=== PATIENT | male | born 1945 | race Caucasian/White ===

== ENCOUNTER → 2016-03-27 | Outpatient (CLI) | payer MEDICARE ==
[~2016-03-27] MED LIST: AZIT-21 PO; B6; CYAN100021 PO; DEXL60CA5 PO; KRIL1CAP10 PO; LACT1CAP62 PO; LEVO75TA57 PO; MAGNESIUM; MECL12.579 PO; NF-ESOM40C; OMEP-10 PO; OSTEO-BIFLEX PO; SYNTHROID; THYR15TA PO; TRM50T PO
--- NOTE | 2016-03-27 13:09 | Diagnostic Imaging Report ---
PROCEDURE: CT abdomen and pelvis without contrast. TECHNIQUE: Multiple contiguous axial images were obtained through the abdomen and pelvis without the use of intravenous contrast. INDICATION: Left lower quadrant pain. FINDINGS: The lung bases appear clear. The heart size is normal. The liver, the gallbladder, the spleen, the pancreas and the adrenals appear unremarkable for an unenhanced exam. The abdominal aorta is normal in caliber. No para-aortic significantly enlarged lymph nodes are seen. The kidneys demonstrate no hydronephrosis. No urinary tract stones seen. The urinary bladder appears unremarkable. There is diverticulosis. No diverticulitis. No significant free fluid or fluid collection in the abdomen or pelvis seen. The prostate is 5.3 cm in transverse dimension. The osseous structures demonstrate mild degenerative changes in the lumbar spine and moderate degenerative changes in the hip joints with significant hyperostosis along the lateral margin of the left acetabulum and subchondral cyst formation seen. This is potentially posttraumatic as well. IMPRESSION: Diverticulosis. No diverticulitis. Enlarged prostate. Dictated by: Dictated on workstation # [id number]
== END ==
LOC: RAD 11:36
PROVIDERS: ATTEND Family Medicine
DX: K57.90 Diverticulosis of intestine, part unspecified, without perforation or abscess without bleeding (principal); N40.0 Benign prostatic hyperplasia without lower urinary tract symptoms
CPT/HCPCS: 74176

== ENCOUNTER 2016-07-22 08:51 | Outpatient (CLI) | payer MEDICARE ==
[~2016-07-22] VITALS: Ht 170.2 cm; Wt 71.8 kg
[2016-07-22] MEDS ORDERED: THYR60TA2 PO (09:09)
[2016-07-22] MEDS ORDERED: GLUC1TAB20 PO (09:09)
[2016-07-22 09:13] VITALS: BP 123/66
[2016-07-22 09:33] LABS: BASOPHILS # (AUTO) 0.1 10^3/uL (0.0-0.1); BASOPHILS % (AUTO) 1 % (0-10); EOSINOPHILS # (AUTO) 0.3 10^3/uL (0.0-0.3); EOSINOPHILS % (AUTO) 4 % (0-10); LYMPHOCYTES # (AUTO) 2.3 X 10^3 (1.0-4.0); LYMPHOCYTES % (AUTO) 37 % (12-44); MEAN CORPUSCULAR HEMOGLOBIN 31 PG (25-34); MEAN CORPUSCULAR HGB CONC 34 G/DL (32-36); MEAN CORPUSCULAR VOLUME 91 FL (80-99); MEAN PLATELET VOLUME 9.6 FL (7.4-10.4); MONOCYTES # (AUTO) 0.6 X 10^3 (0.0-1.0); MONOCYTES % (AUTO) 10 % (0-12); NEUTROPHILS # (AUTO) 3.1 X 10^3 (1.8-7.8); NEUTROPHILS % (AUTO) 48 % (42-75); PLATELET COUNT 165 10^3/uL (130-400); RED BLOOD COUNT 4.79 10^6/uL (4.35-5.85); RED CELL DISTRIBUTION WIDTH 13.3 % (10.0-14.5); WHITE BLOOD COUNT 6.4 10^3/uL (4.3-11.0)
== END 2016-07-22 10:18 | disposition home or self-care (01) ==
LOC: PREOP 08:51
PROVIDERS: ATTEND Surgery Pediatric Surgery
DX: Z01.812 Encounter for preprocedural laboratory examination (principal); Z11.2 Encounter for screening for other bacterial diseases; K40.90 Unilateral inguinal hernia, without obstruction or gangrene, not specified as recurrent
CPT/HCPCS: 36415; 85025; 87081

== ENCOUNTER 2016-07-24 07:53 | Day surgery (SDC) | payer MEDICARE ==
[~2016-07-24] VITALS: Ht 170.2 cm; Wt 71.8 kg
[~2016-07-24 07:53] MED LIST changes: +GLUC1TAB20 PO; +THYR60TA2 PO
[2016-07-24] MEDS ORDERED: NS (IVPB) 50 ML ONE (07:56)
[2016-07-24] MEDS ORDERED: ceFAZolin 1,000 MG (ANCEF) VIAL ONE (07:56)
[2016-07-24] MEDS: LACTATED RINGERS 1,000 ML IV PRN ×2 (08:00→10:25)
[2016-07-24 08:05] VITALS: BP 138/86
--- NOTE | 2016-07-24 08:05 | Progress Note-Pre Operative ---
Pre-Operative Progress Note H&P Reviewed The H&P was reviewed, patient examined and no changes noted. Date H&P Reviewed: July 24, 2016 Time H&P Reviewed: 08:00 Pre-Operative Diagnosis: Symptomatic left inguinal hernia EILEEN MCGHEE APRN July 24, 2016 8:05 am
[2016-07-24] MEDS ORDERED: morphine INJ 10 MG/ML 1ML (SYR OR VIAL) IVP PRN (08:15)
[2016-07-24] MEDS ORDERED: HYDROcodone/APAP 5 MG/325 MG (LORTAB) TAB PO ONE (08:15)
[2016-07-24] MEDS ORDERED: ONDANSETRON 4 MG/2 ML (SDV) Z0FRAN IVP PRN ×2 (08:15→12:15)
[2016-07-24] MEDS ORDERED: ceFAZolin 1 GM/NS 50 ML IVPB IV ONE ×2 (08:15)
[2016-07-24] MEDS ORDERED: CATHETER FLUSH 10 ML SYR IV PRN (08:15)
[2016-07-24] MEDS ORDERED: ACETAMINOPHEN 325 MG TABLET/CAPLET (TYLENOL) PO PRN (08:15)
[2016-07-24] MEDS ORDERED: ROCURONIUM 50 MG/5 ML (ZEMURON) VIAL IV ONE (08:32)
[2016-07-24] MEDS ORDERED: proPOfol 200 MG/20 ML (DIPRIVAN) VIAL IV ONE (08:32)
[2016-07-24] MEDS ORDERED: ONDANSETRON 4 MG/2 ML (SDV) Z0FRAN ONE (08:32)
[2016-07-24] MEDS ORDERED: LIDOCAINE PF 2% 10 ML (XYLOCAINE) AMP ONE (08:32)
[2016-07-24] MEDS ORDERED: MIDAZOLAM 2 MG/2 ML (VERSED) VIAL ONE (08:32)
[2016-07-24] MEDS ORDERED: fentaNYL INJECTION 100 MCG/2 ML AMP ONE ×2 (08:33→11:35)
[2016-07-24] MEDS ORDERED: BUP/EPI 0.5% 1:200,000 (SENSORCAINE) 30 ML VIAL ONE (08:51)
[2016-07-24] MEDS ORDERED: LACTATED RINGERS 1,000 ML IV ONE (10:33)
[2016-07-24] MEDS ORDERED: SEVOFLURANE (ULTANE) 15 ML INHAL SOLN ONE (10:45)
[2016-07-24] MEDS ORDERED: NEOSTIGMINE (BLOXIVERZ ) 1 MG/1ML 10 ML VIAL ONE (11:38)
[2016-07-24] MEDS ORDERED: GLYCOPYRROLATE 0.2 MG/ML (ROBINUL) 2 ML VIAL ONE (11:38)
[2016-07-24] MEDS ORDERED: morphine INJ 10 MG/ML 1ML (SYR OR VIAL) ONE (11:40)
[2016-07-24] MEDS ORDERED: HYDR-3730 PO (11:49)
--- NOTE | 2016-07-24 11:49 | Progress Note-Post Operative ---
Post-Operative Progess Note Surgeon (s)/Summons Server (s) Surgeon KARLIE PAREDES MD Summons Server: les edward KNOCKOUT WORKER Pre-Operative Diagnosis Symptomatic left inguinal hernia Post-Operative Diagnosis symptomatic left direct inguinal hernia. Procedure & Operative Findings Date of Procedure 07/24/16 Procedure Performed/Findings laparoscopic left inguinal hernia repair with mesh. Anesthesia Type GET Estimated Blood Loss Estimated blood loss (mL): minimal Specimens/Packing Specimens Removed none KARLIE PAREDES MD July 24, 2016 11:48 am
--- NOTE | 2016-07-24 11:50 | Discharge Inst-Surgical ---
D/C Lap Instructions-LENA New, Converted, or Re-Newed RX: RX on Chart Follow Up Appt in 2 weeks Activity as tolerated No driving for 24 hours No driving while on pain medications Incentive Spirometry use every 2 hours while awake Regular Diet Symptoms to Report: Fever over 101 degree F, Nausea/Vomiting Infection Signs and Symptoms to report: Increased redness, Foul odor of wound, Increased drainage Bathing instructions: May shower Operative Area Clean/Dry; Keep incision clean/dry If any problems/questions: Contact your physician or go to Emergency Room KARLIE PAREDES MD July 24, 2016 11:50 am
[2016-07-24] MEDS ORDERED: HYDROmorphone (DILAUDID) 2 MG/ML VIAL IVP PRN (12:15)
[2016-07-24] MEDS ORDERED: MEPERIDINE (DEMEROL) INJ 50 MG/ML IVP PRN (12:15)
[2016-07-24] MEDS: morphine INJ 10 MG/ML 1ML (SYR OR VIAL) IVP PRN ×2 (12:23→12:27)
[2016-07-24 13:00] VITALS: BP 129/78
[2016-07-24] MEDS ORDERED: HYDROcodone/APAP 7.5 MG/325 MG (LORTAB, LORCET PLUS) TABLET PO ONE ×2 (13:26→13:45)
[2016-07-24 13:30] VITALS: BP 124/76
--- NOTE | 2016-07-24 22:55 | OPERATIVE REPORT ---
DATE OF SERVICE: 07/24/2016 ATTENDING PRIMARY CARE PHYSICIAN: Dr. Weir. PREOPERATIVE DIAGNOSIS: Symptomatic left inguinal hernia and non-specific left lower quadrant abdominal pain. POSTOPERATIVE DIAGNOSIS: Symptomatic left direct inguinal hernia. PROCEDURE: Diagnostic laparoscopy and laparoscopic left inguinal hernia repair with mesh. SURGEON: Dr. Robledo. ANESTHESIA: General endotracheal. LIFE SKILLS TRAINER: Jared Tapia APRN ESTIMATED BLOOD LOSS: Minimal. FINDINGS: Direct left inguinal hernia. No right inguinal hernia component. DISPOSITION: The patient tolerated the procedure well. INDICATION: The patient is a 71-year-old male who we have seen before in the past for gastroesophageal reflux disease and Fernández's esophagus. He did undergo a hiatal hernia repair and a Hill gastropexy and we had done followup EGDs on him, which were negative for Fernández's esophagus. He developed pain in the left inguinal region, which he noticed approximately two months ago, which had grown larger in size and become painful. He reports that he does have arthritis well as irritable bowel syndrome and has had some pain in the same region before as well. Upon examination, he was found to have a left bulge, which was reducible; however, tender to palpation, consistent with an inguinal hernia. PROCEDURE IN DETAIL: The patient was brought to the operating room, laid supine on the table. After adequate IV pain and sedative medications and general endotracheal intubation, the abdomen was prepped and draped in standard surgical fashion. Then 0.5% Marcaine with epinephrine was then used to anesthetize the overlying skin in the infraumbilical rim and a small transverse skin incision made using a 15 blade. A sharp towel clamp was applied. Then, the abdominal wall was retracted anteriorly. A Veress needle inserted with a low opening pressure of 0 mmHg. The abdomen was then insufflated to 15 mmHg pressure. The Veress needle removed and a 5 mm Xcel trocar placed followed by a 10 mm Xcel trocar placed followed by a 10 mm 45-degree angle laparoscope visualizing the peritoneal cavity. A full quadrant abdominal x-ray exploration was performed. There were omental adhesions towards the anterior abdominal wall. There was also what appeared to be sigmoid colonic adhesions towards the peritoneal lining. There was a left direct inguinal hernia identified with nothing within the hernia sac. There was no right inguinal hernia component. Under direct visualization, we then proceeded to place bilateral 5 mm ports under direct visualization after the skin and peritoneum were anesthetized using 0.5% Marcaine with epinephrine and a transverse skin incision made using a 15 blade. The patient was then placed in Trendelenburg position. The peritoneal lining was then opened using Sonicision. We then proceeded with lateral dissection towards the conjoint tendon and inguinal ligament. We then proceeded medially until the Diogo's ligament was identified. We then proceeded with inferior dissection encompassing the entire hernia sac. The cord and its contents were identified and spread throughout the process. Good hemostasis was also observed. A Bard 3D Max polypropylene mesh was then placed through the 10-mm port. The mesh was then tacked to Diogo's ligament medially using a SorbaFix and laterally to the conjoined tendon and inguinal ligament. The few demetrio tacks were then placed to hold the peritoneal lining over the mesh with visualization of good hemostasis. The 10-mm port site fascia and peritoneum were then closed under direct visualization using a Oscar-Donte device and a 0 Vicryl suture. The abdomen was desufflated and remaining ports were removed. All skin incisions were closed using 4-0 Monocryl subcuticular sutures. The wounds were then cleaned and covered with Dermabond. The patient tolerated the procedure well. We will start IV and oral pain medication as well as a clearly liquid diet. Once he is tolerating clears and has good pain control with oral pain medications and ambulating well, we will discharge him home. Job ID: [id number] DocumentID: [id number] Dictated Date: 07/24/2016 11:46:44 Nutritionist Date: 07/24/2016 22:04:33 Dictated By: KARLIE ROBLEDO MD MTDD
== END 2016-07-24 13:54 | disposition home or self-care (01) ==
LOC: SDC 07:53
PROVIDERS: ATTEND Surgery Pediatric Surgery
DX: K40.90 Unilateral inguinal hernia, without obstruction or gangrene, not specified as recurrent (principal); I10 Essential (primary) hypertension; E03.9 Hypothyroidism, unspecified; K21.9 Gastro-esophageal reflux disease without esophagitis; Z87.891 Personal history of nicotine dependence; Z79.899 Other long term (current) drug therapy
CPT/HCPCS: 94664

== ENCOUNTER → 2017-01-20 | Outpatient (CLI) | payer MEDICARE ==
[~2017-01-20] MED LIST changes: +HYDR-3730 PO
--- NOTE | 2017-01-20 17:59 | Diagnostic Imaging Report ---
EXAMINATION: PA and lateral views of the chest. COMPARISON: 10/02/2009. INDICATION: Exposure to asbestos. FINDINGS: There is mild increased opacity projecting over the right lung base which is favored to be related to asymmetric soft tissue superimposition with no definite focal infiltrate seen on the lateral view. The heart size is normal. No effusion or pneumothorax The mediastinum and tatiana appear unremarkable. Ossification of the anterior longitudinal ligament is seen. IMPRESSION: No acute process. Dictated by: Dictated on workstation # [id number]
== END ==
LOC: RAD 11:41
PROVIDERS: ATTEND Family Medicine
DX: M94.0 Chondrocostal junction syndrome [Tietze] (principal); Z77.090 Contact with and (suspected) exposure to asbestos
CPT/HCPCS: 71020

== ENCOUNTER → 2018-05-31 | Outpatient (CLI) | payer MEDICARE | LOC: CARD 08:40 | PROVIDERS: ATTEND Physician Assistant | DX: R07.89 Other chest pain (principal); I11.0 Hypertensive heart disease with heart failure; I50.30 Unspecified diastolic (congestive) heart failure; E78.2 Mixed hyperlipidemia; I08.0 Rheumatic disorders of both mitral and aortic valves | CPT/HCPCS: 93306 ==

== ENCOUNTER → 2021-10-24 | Outpatient (CLI) | payer MEDICARE ==
[~2021-10-24] MED LIST changes: -GLUC1TAB20 PO; +GLUC1TAB21 PO
--- NOTE | 2021-10-24 10:18 | Diagnostic Imaging Report ---
PROCEDURE: CT sinuses without contrast TECHNIQUE: Multiple contiguous axial images were obtained through the sinuses without the use of intravenous contrast. Coronal and sagittal reformations were then performed. Auto Exposure Controls were utilized during the CT exam to meet ALARA standards for radiation dose reduction. INDICATION: Headaches. Sinus pain. COMPARISON: Sinus CT without contrast 10/05/2014. FINDINGS: Mild mucosal thickening in the frontal and anterior ethmoid sinuses. No air-fluid levels. There is occlusion of the frontal recesses by mucosal thickening. The ostiomeatal units are patent. Moderate leftward bowing of the nasal septum. No large danna bullosa. Visualized mastoids are clear. Normal alignment of the temporomandibular joints. No fractures in baidf-td-onzy. IMPRESSION: Mild mucosal thickening in the frontal and anterior ethmoid sinuses occludes the frontal recesses. No air-fluid levels. Paranasal sinuses are otherwise clear. Dictated by: Dictated on workstation # [id number]
== END ==
LOC: RAD 10:15
PROVIDERS: ATTEND Family Medicine
DX: J32.9 Chronic sinusitis, unspecified (principal)
CPT/HCPCS: 70486

== ENCOUNTER 2021-12-24 22:06 | Emergency (ER) | payer MEDICARE ==
[~2021-12-24] VITALS: Ht 180.3 cm; Wt 68.0 kg
[2021-12-24 22:10] VITALS: BP 170/94
--- NOTE | 2021-12-24 22:11 | ED General ---
General Stated Complaint: HIGH BLOOD PRESSURE History of Present Illness Date Seen by Provider: Dec 24, 2021 Time Seen by Provider: 22:10 Initial Comments 77-year-old male with PMH of hypothyroidism is here with complaints of elevated blood pressure readings at home. Patient stated that his systolic blood pressure went up to 170 and that is unusual for him. Patient does not have any associated symptoms with elevated blood pressure. Denies chest pain, palpitations, dizziness, headache, neck pain, abdominal pain, shortness of breath. Patient is not on any hypertensive medications and was never diagnosed with hypertension. Allergies and Home Medications Allergies Coded Allergies: No Known Drug Allergies (Unverified , 07/22/16) Patient Home Medication List Home Medication List Reviewed: Yes Gluc Alvarado/Chondro Alvarado A/Vit C/Mn (Glucosamine Chondroitin Tab) 1 Each Tablet, 1 EACH PO DAILY, (Reported) Entered as Reported by: FIDENCIO EDWARDS on 07/22/16 0909 Hydrocodone/Acetaminophen (Lortab 7.5-325 mg Tablet) 1 Each Tablet, 1-2 EACH PO Q6H Prescribed by: KARLIE PAREDES on 07/24/16 1149 Krill Oil/Randall-3/Dha/Epa (Fish Oil With Krill Softgel) 1 Each Capsule.dr, 1 EACH PO DAILY, (Reported) Entered as Reported by: ITZ WEST on 03/17/13 1421 Thyroid,Pork ([place] Thyroid) 60 Mg Tablet, 30 MG PO DAILY, (Reported) Entered as Reported by: FIDENCIO EDWARDS on 07/22/16 0909 Review of Systems Review of Systems Constitutional: no symptoms reported EENTM: no symptoms reported Respiratory: no symptoms reported Cardiovascular: no symptoms reported, see HPI Gastrointestinal: no symptoms reported Genitourinary: no symptoms reported Musculoskeletal: no symptoms reported Skin: no symptoms reported Psychiatric/Neurological: No Symptoms Reported Hematologic/Lymphatic: No Symptoms Reported Immunological/Allergic: no symptoms reported Past Awnsuim-Dfocgw-Kkgyaj Hx Seasonal Allergies Seasonal Allergies: Yes Past Medical History Appendectomy Reproductive Disorders: No Sexually Transmitted Disease: No HIV/AIDS: No Kidney Stones Diverticulosis Arthritis Loss of Vision: Bilateral Hearing Impairment: Denies Adverse Reaction/Blood Tranf: No (N/A) Physical Exam Vital Signs Capillary Refill : Height, Weight, BMI Height: 5'7.00" Weight: 158lbs. 6.0oz. 71.208501cg; 24.8 BMI Method:Stated General Appearance: No Apparent Distress, WD/WN HEENT: PERRL/EOMI, Normal ENT Inspection Neck: Full Range of Motion, Normal Inspection, Non Tender, Supple Respiratory: Chest Non Tender, Lungs Clear, Normal Breath Sounds Cardiovascular: Regular Rate, Rhythm, No Edema Gastrointestinal: Normal Bowel Sounds, Non Tender, Soft Back: Normal Inspection Neurologic/Psychiatric: Alert, Oriented x3, No Motor/Sensory Deficits, Normal Mood/Affect, coat agent II-XII Norm as Tested Skin: Normal Color, Warm/Dry Lymphatic: No Adenopathy Progress/Results/Core Measures Suspected Sepsis SIRS Temperature: Pulse: Respiratory Rate: Blood Pressure / Mean: Results/Orders My Orders Orders - NELLI MCWILLIAMS MD Ekg Tracing (12/24/21 22:26) Vital Signs/I&O Capillary Refill : Progress Note : Progress Note 1. ELEVATED BLOOD PRESSURE: - BP readings in ER were 140/94 and 120/74 - Pt is asymptomatic at all times in ER and at home -Advised patient to keep a journal of blood pressure readings twice a day until his follow-up appointment this coming . Advised patient to return to ER if any symptoms develop along with the high blood pressure which include but are not limited to headache, dizziness, chest pain, palpitations, nausea and vomiting, etc. -Advised to keep appointment with PCP this week. -The patient was seen in the ED, and treated appropriately to presentation at a specific point in time. Patient is informed that there is a possibility that disease and illness can evolve and change in acuity rapidly or slowly after patient is discharged from the ER. Precautionary advice given to the patient for immediate return to ER if symptoms worsen or do not resolve, and to seek emergency care sooner rather than later. Pt also advised on the importance of PCP follow up and compliance with management and follow up plan with PCP and/or specialist, as this is part of the management plan. Pt verbally expressed understanding. Departure Impression Primary Impression: Elevated blood pressure reading Disposition: HOME, SELF-CARE Condition: Improved Departure-Patient Inst. Referrals: ZACK WINSTON MD (PCP/Family) Primary Care Physician Patient Instructions: High Blood Pressure in Adults, Heart Healthy Diet Add. Discharge Instructions: -Advised patient to keep a journal of blood pressure readings twice a day until his follow-up appointment this . Advised patient to return to ER if any symptoms develop along with the high blood pressure which include but are not limited to headache, dizziness, chest pain, palpitations, nausea and vomit ing, etc. -Advised to keep appointment with PCP this week. NELLI MCWILLIAMS MD Dec 24, 2021 22:11
== END 2021-12-24 23:30 | disposition home or self-care (01) ==
LOC: EDUNIT# 22:06 → ER 22:08
DX: R03.0 Elevated blood-pressure reading, without diagnosis of hypertension (principal)
CPT/HCPCS: 99281

== ENCOUNTER → 2022-03-26 | Outpatient (CLI) | payer MEDICARE ==
--- NOTE | 2022-03-26 14:03 | Diagnostic Imaging Report ---
PROCEDURE: US Renal Bilateral. TECHNIQUE: Multiple real-time grayscale images were obtained over the kidneys in various projections bilaterally. INDICATION: Flank pain. Right kidney measures 11.0 x 5.8 x 6.0 cm and the left kidney measures 12.4 x 4.7 x 5.0 cm. Cortical thickness and echogenicity is normal. No calculi are seen. There is no hydronephrosis. Prevoid bladder volume is 230 mL. Postvoid volume is 111 mL. Bilateral ureteral jets are visualized. Prostate does appear to be somewhat prominent measuring 5.0 x 3.8 x 4.4 cm. IMPRESSION: 1. No evidence of calculi or hydronephrosis. 2. Post void residual bladder volume. 3. Prostatomegaly. Dictated by: Dictated on workstation # [id number]
== END ==
LOC: RAD 11:26
PROVIDERS: ATTEND Nurse Practitioner Family
DX: N40.0 Benign prostatic hyperplasia without lower urinary tract symptoms (principal); R10.9 Unspecified abdominal pain
CPT/HCPCS: 76770

== ENCOUNTER → 2022-09-04 | Outpatient (CLI) | payer MEDICARE ==
--- NOTE | 2022-09-04 13:12 | Diagnostic Imaging Report ---
Clinical indications: Patient sinus infections, sinus frontal pressure. Patient has dizziness and headaches. EXAM: Axial CT scan of the maxillofacial structures without IV contrast using fusion protocol. Coronal and sagittal reformations were performed. Auto Exposure Controls were utilized during the CT exam to meet ALARA standards for radiation dose reduction. COMPARISON: CT scan of the sinuses without contrast dated 10/24/2021. FINDINGS: PARANASAL SINUSES: FRONTAL: There is mild mucosal thickening which has slightly improved. ETHMOID: There is minimal mucosal thickening involving the anterior aspect of the ethmoid sinus which has improved. MAXILLARY: There is minimal mucosal thickening involving the anterior aspect of the maxillary sinuses which have not significantly changed. SPHENOID: There is a small amount of fluid within the sphenoid sinus which has developed in interim. OTHER PARANASAL SINUS FINDINGS: The ostiomeatal unit regions are patent. NASAL SEPTUM: There is a roughly 3 mm leftward directed nasal septal bony spur seen posteriorly. There is roughly 4 mm of leftward directed nasal septal bony spur. VISUALIZED TEMPORAL BONE STRUCTURES: Unremarkable. BONY STRUCTURES: Unremarkable. EXTRACRANIAL SOFT TISSUE/ ORBITS: Unremarkable. IMPRESSION: 1: There is mild paranasal sinus disease, as described above. 2: There is mild leftward nasal septal deviation with a small leftward directed nasal septal bony spur. Dictated by: Dictated on workstation # [id number]
== END ==
LOC: RAD 11:37
PROVIDERS: ATTEND Otolaryngology Otolaryngology/Facial Plastic Surgery
DX: J32.9 Chronic sinusitis, unspecified (principal); J34.2 Deviated nasal septum; J34.89 Other specified disorders of nose and nasal sinuses
CPT/HCPCS: 70486